=== PATIENT | female | born 1945 | race Asian ===

== ENCOUNTER 2016-05-21 10:54 | Outpatient (CLI) | payer OTHER ==
[~2016-05-21] VITALS: Ht 162.6 cm; Wt 80.7 kg
[2016-05-21 11:15] VITALS: BP 97/58; TEMP 97.8
[2016-05-21 11:52] VITALS: BP 102/58; TEMP 97.8
== END 2016-05-21 12:00 | disposition home or self-care (01) ==
LOC: INF 10:54
DX: N30.01 Acute cystitis with hematuria (principal)
CPT/HCPCS: 96372; J0696

== ENCOUNTER 2016-05-22 10:09 | Outpatient (CLI) | payer OTHER ==
[~2016-05-22] VITALS: Ht 162.6 cm; Wt 80.7 kg
[2016-05-22 10:15] VITALS: BP 100/59; TEMP 97.7
== END 2016-05-22 11:09 | disposition home or self-care (01) ==
LOC: INF 10:09
DX: N30.01 Acute cystitis with hematuria (principal)
CPT/HCPCS: 96372; J0696

== ENCOUNTER 2016-05-23 10:24 | Outpatient (CLI) | payer OTHER | END 2016-05-23 11:24 | disposition home or self-care (01) | LOC: INF 10:24 | DX: N30.01 Acute cystitis with hematuria (principal) | CPT/HCPCS: 96372; J0696 ==

== ENCOUNTER 2016-05-24 09:13 | Outpatient (CLI) | payer OTHER ==
[2016-05-24 09:15] VITALS: BP 118/68; TEMP 97.6
== END 2016-05-24 19:14 | disposition home or self-care (01) ==
LOC: INF 09:13
DX: N30.01 Acute cystitis with hematuria (principal)
CPT/HCPCS: 96372; J0696

== ENCOUNTER 2016-05-25 09:24 | Outpatient (CLI) | payer OTHER ==
[~2016-05-25] VITALS: Ht 152.4 cm; Wt 1.8 kg
[2016-05-25 09:25] VITALS: BP 98/57; TEMP 98.7
== END 2016-05-25 20:08 | disposition home or self-care (01) ==
LOC: INF 09:24
DX: N30.01 Acute cystitis with hematuria (principal)
CPT/HCPCS: 96372; J0696

== ENCOUNTER 2016-07-03 08:29 | Outpatient (CLI) | payer OTHER ==
[~2016-07-03] VITALS: Ht 175.3 cm; Wt 72.6 kg
== END 2016-07-03 09:29 | disposition home or self-care (01) ==
LOC: CT 08:29
DX: N30.20 Other chronic cystitis without hematuria (principal); N39.0 Urinary tract infection, site not specified; R10.9 Unspecified abdominal pain; N93.8 Other specified abnormal uterine and vaginal bleeding
CPT/HCPCS: Q9963

== ENCOUNTER 2016-11-12 13:04 | Outpatient (CLI) | payer OTHER | END 2016-11-12 14:05 | disposition home or self-care (01) | LOC: RAD 13:04 | DX: J44.0 Chronic obstructive pulmonary disease with (acute) lower respiratory infection (principal) ==

== ENCOUNTER 2016-11-23 11:53 | Observation (INO) | payer OTHER ==
[~2016-11-23] VITALS: Ht 162.6 cm; Wt 80.0 kg
[2016-11-23 15:15] VITALS: BP 100/63; TEMP 98.5; Ht 162.6 cm; Wt 80.0 kg
[2016-11-23 15:21] LABS: PLATELET COUNT 367 K/uL (152-353)
[2016-11-23 15:38] LABS: SODIUM 138 mmol/L (136-145)
[2016-11-23 15:52] LABS: PARTIAL THROMBOPLASTIN TIME 21.7 SECONDS (24.5-33.6)
[2016-11-23 15:55] VITALS: BP 94/54; TEMP 98.3
[2016-11-23 20:00] VITALS: BP 97/53; TEMP 99.4
[2016-11-23 23:27] VITALS: BP 121/56; TEMP 100.9
[2016-11-24 04:00] VITALS: BP 92/52; TEMP 99.3
[2016-11-24 08:00] VITALS: BP 83/47; TEMP 98.3
[2016-11-24] MEDS ORDERED: ALPR0.5T24 PO (10:04)
[2016-11-24] MEDS ORDERED: CHLORTHALID25 MG PO (10:05)
[2016-11-24] MEDS ORDERED: DIOVAN320 MG PO (10:12)
[2016-11-24] MEDS ORDERED: AMLO2.5T PO (10:22)
[2016-11-24] MEDS ORDERED: SIMV40TA57 PO (10:25)
[2016-11-24] MEDS ORDERED: AVAPRO300 MG PO (10:26)
[2016-11-24] MEDS ORDERED: ESCITALOPRAM10 MG PO (10:27)
[2016-11-24] MEDS ORDERED: METFTAB PO (10:30)
[2016-11-24] MEDS ORDERED: ALBU90AE13 INH (10:32)
[2016-11-24 12:00] VITALS: BP 98/59; TEMP 98.2
[2016-11-24 16:00] VITALS: BP 90/46; TEMP 98.1
== END 2016-11-24 20:30 | disposition home or self-care (01) ==
LOC: MED/SURG 11:53
PROVIDERS: ADMIT Family Medicine
DX: R07.89 Other chest pain (principal); I10 Essential (primary) hypertension; L03.221 Cellulitis of neck; L29.9 Pruritus, unspecified; M54.5 Low back pain; K02.9 Dental caries, unspecified; I95.1 Orthostatic hypotension
CPT/HCPCS: 36415; 36591; 80053; 82550; 82553; 82948; 84484; 85027; 85610; 85730; 93005; 94760; 96367; 96372; 99220; G0378; G0379; J1650

== ENCOUNTER 2017-07-30 14:06 | Outpatient (CLI) | payer OTHER ==
[~2017-07-30 14:06] MED LIST: ALBU90AE13 INH; ALPR0.5T24 PO; AMLO2.5T PO; AVAPRO300 MG PO; CHLORTHALID25 MG PO; DIOVAN320 MG PO; ESCITALOPRAM10 MG PO; METFTAB PO; SIMV40TA57 PO
== END 2017-07-30 19:28 | disposition home or self-care (01) ==
LOC: RAD 14:06
DX: M25.571 Pain in right ankle and joints of right foot (principal)

== ENCOUNTER 2017-11-09 08:46 | Outpatient (CLI) | payer OTHER | END 2017-11-09 19:24 | disposition home or self-care (01) | LOC: RAD 08:46 | DX: M81.0 Age-related osteoporosis without current pathological fracture (principal) ==

== ENCOUNTER 2017-12-01 16:38 | Outpatient (CLI) | payer OTHER | END 2017-12-01 23:59 | disposition home or self-care (01) | LOC: LABW 16:38 | DX: B35.1 Tinea unguium (principal) | CPT/HCPCS: 84450; 84460 ==

== ENCOUNTER 2017-12-14 09:50 | Outpatient (CLI) | payer OTHER | END 2017-12-14 23:48 | disposition home or self-care (01) | LOC: CT 09:50 | DX: R60.0 Localized edema (principal) | CPT/HCPCS: 36415; 82565; 84520 ==

== ENCOUNTER 2018-01-19 15:13 | Outpatient (CLI) | payer OTHER | END 2018-01-19 20:44 | disposition home or self-care (01) | LOC: LABW 15:13 | DX: B35.1 Tinea unguium (principal) | CPT/HCPCS: 36415; 84450; 84460 ==

== ENCOUNTER 2018-07-15 15:06 | Emergency (ER) | payer OTHER ==
[~2018-07-15] VITALS: Ht 162.6 cm; Wt 86.6 kg
[2018-07-15 15:18] VITALS: BP 118/60; TEMP 98
== END 2018-07-15 15:20 | disposition home or self-care (01) ==
LOC: ED 15:06
DX: Z01.30 Encounter for examination of blood pressure without abnormal findings (principal)

== ENCOUNTER 2018-11-02 13:32 | Outpatient (CLI) | payer OTHER | END 2018-11-02 23:43 | disposition home or self-care (01) | LOC: MAMMO 13:32 | DX: Z12.31 Encounter for screening mammogram for malignant neoplasm of breast (principal) ==

== ENCOUNTER 2018-12-06 17:41 | Emergency (ER) | payer OTHER ==
[~2018-12-06] VITALS: Ht 162.6 cm; Wt 82.1 kg
[2018-12-06 17:47] VITALS: BP 139/77; TEMP 97.7
== END 2018-12-06 18:21 | disposition home or self-care (01) ==
LOC: ED 17:41
DX: K08.89 Other specified disorders of teeth and supporting structures (principal)
CPT/HCPCS: 99281

== ENCOUNTER 2019-04-11 12:54 | Outpatient (CLI) | payer OTHER | END 2019-04-11 19:05 | disposition home or self-care (01) | LOC: LABW 12:54 | DX: B35.1 Tinea unguium (principal) | CPT/HCPCS: 36415; 84450; 84460 ==

== ENCOUNTER 2019-05-02 10:28 | Outpatient (CLI) | payer OTHER | END 2019-05-02 19:37 | disposition home or self-care (01) | LOC: RAD 10:28 | DX: M25.511 Pain in right shoulder (principal); M54.5 Low back pain ==

== ENCOUNTER 2019-05-05 12:22 | Outpatient (CLI) | payer OTHER | END 2019-05-05 19:53 | disposition home or self-care (01) | LOC: LABW 12:22 | DX: B35.1 Tinea unguium (principal) | CPT/HCPCS: 36415; 84450; 84460 ==

== ENCOUNTER 2019-05-31 16:40 | Emergency (ER) | payer OTHER ==
[~2019-05-31] VITALS: Ht 162.6 cm; Wt 82.1 kg
[2019-05-31 17:43] LABS: PLATELET COUNT 280 K/uL (152-353)
[2019-05-31 17:54] LABS: POTASSIUM 3.7 mmol/L (3.6-5.2); SODIUM 137 mmol/L (136-145)
[2019-05-31 18:06] LABS: PARTIAL THROMBOPLASTIN TIME 29.3 SECONDS (24.5-33.6)
[2019-05-31 21:05] VITALS: BP 121/54; TEMP 99.7
== END 2019-05-31 21:06 | disposition home or self-care (01) ==
LOC: ED 16:40
PROVIDERS: Emergency Medicine
DX: J11.1 Influenza due to unidentified influenza virus with other respiratory manifestations (principal); R00.0 Tachycardia, unspecified; Z79.899 Other long term (current) drug therapy; Z51.81 Encounter for therapeutic drug level monitoring
CPT/HCPCS: 36415; 80053; 82550; 82553; 83605; 84484; 85027; 85610; 85730; 87040; 87502; 87651; 93005; 96360; 99284

== ENCOUNTER 2020-10-29 15:09 | Outpatient (CLI) | payer OTHER | END 2020-10-29 22:38 | disposition home or self-care (01) | LOC: RAD 15:09 | PROVIDERS: ATTEND Nurse Practitioner Primary Care | DX: M25.561 Pain in right knee (principal) ==

== ENCOUNTER 2021-05-05 13:29 | Outpatient (CLI) | payer OTHER | END 2021-05-05 20:28 | disposition home or self-care (01) | LOC: MRI 13:29 | PROVIDERS: ATTEND Family Medicine | DX: M25.561 Pain in right knee (principal) ==

== ENCOUNTER 2021-11-24 17:03 | Emergency (ER) | payer OTHER ==
[~2021-11-24] VITALS: Ht 162.6 cm; Wt 86.2 kg
[2021-11-24 21:55] VITALS: BP 147/74; TEMP 98.5
== END 2021-11-24 21:55 | disposition home or self-care (01) ==
LOC: ED 17:03
DX: R51.9 Headache, unspecified (principal); I10 Essential (primary) hypertension
CPT/HCPCS: 36415; 96360; 96361; 96374; 96375; 99284; J0360; J2270; J2405

== ENCOUNTER 2021-11-26 04:06 | Emergency (ER) | payer OTHER ==
[~2021-11-26] VITALS: Ht 162.6 cm; Wt 86.2 kg
[2021-11-26 04:15] VITALS: TEMP 98.5
[2021-11-26 05:41] LABS: PLATELET COUNT 303 K/uL (152-353)
[2021-11-26 05:50] LABS: POTASSIUM 3.8 mmol/L (3.6-5.2)
[2021-11-26 08:20] VITALS: BP 154/77
== END 2021-11-26 08:20 | disposition home or self-care (01) ==
LOC: ED 04:06
PROVIDERS: Hospitalist
DX: I16.0 Hypertensive urgency (principal); G44.209 Tension-type headache, unspecified, not intractable
CPT/HCPCS: 36415; 80053; 81002; 82550; 83880; 84484; 85027; 85610; 85730; 93005; 96372; 99283; J1200; J1885; J2270; J2405

== ENCOUNTER 2022-03-10 18:43 | Emergency (ER) | payer OTHER ==
[~2022-03-10] VITALS: Ht 162.6 cm; Wt 88.0 kg
[2022-03-10 19:28] LABS: PLATELET COUNT 317 K/uL (152-353)
[2022-03-10 19:33] LABS: POTASSIUM 3.7 mmol/L (3.6-5.2)
[2022-03-10 20:04] LABS: PARTIAL THROMBOPLASTIN TIME 25.2 SECONDS (24.5-33.6)
[2022-03-10 20:36] VITALS: BP 149/66; TEMP 98.2
== END 2022-03-10 20:36 | disposition home or self-care (01) ==
LOC: ED 18:43
PROVIDERS: Emergency Medicine
DX: I10 Essential (primary) hypertension (principal); G44.209 Tension-type headache, unspecified, not intractable; E11.65 Type 2 diabetes mellitus with hyperglycemia; Z79.84 Long term (current) use of oral hypoglycemic drugs; Z51.81 Encounter for therapeutic drug level monitoring
CPT/HCPCS: 36415; 80053; 83880; 84484; 85027; 85610; 85730; 93005; 96374; 99284; J0360

== ENCOUNTER 2022-05-22 14:13 | Outpatient (CLI) | payer OTHER | END 2022-05-22 19:59 | disposition home or self-care (01) | LOC: LABW 14:13 | PROVIDERS: ATTEND Podiatrist | DX: B35.1 Tinea unguium (principal) | CPT/HCPCS: 36415; 84450; 84460 ==

== ENCOUNTER 2022-06-26 14:45 | Emergency (ER) | payer OTHER ==
[~2022-06-26] VITALS: Ht 162.6 cm; Wt 79.4 kg
[2022-06-26 14:59] VITALS: BP 166/81; TEMP 98.8
== END 2022-06-26 15:41 | disposition home or self-care (01) ==
LOC: ED 14:45
DX: S10.86XA Insect bite of other specified part of neck, initial encounter (principal); S40.862A Insect bite (nonvenomous) of left upper arm, initial encounter; S40.861A Insect bite (nonvenomous) of right upper arm, initial encounter; S50.862A Insect bite (nonvenomous) of left forearm, initial encounter; S50.861A Insect bite (nonvenomous) of right forearm, initial encounter; W57.XXXA Bitten or stung by nonvenomous insect and other nonvenomous arthropods, initial encounter; Y92.89 Other specified places as the place of occurrence of the external cause
CPT/HCPCS: 96372; 99282; J1100

== ENCOUNTER 2023-02-04 12:25 | Outpatient (CLI) | payer OTHER | END 2023-02-04 19:05 | disposition home or self-care (01) | LOC: US 12:25 | PROVIDERS: ATTEND Nurse Practitioner Family | DX: E03.8 Other specified hypothyroidism (principal) ==